=== PATIENT | male | born 1965 | race Caucasian/White ===

== ENCOUNTER 2021-10-03 08:49 | Emergency (ER) | payer BC, SELFPAY ==
[2021-10-03] MEDS ORDERED: Ondansetron PF 4 MG/2 ML Vial ONE ×2 (09:35→11:47)
[2021-10-03] MEDS ORDERED: Morphine 4 MG/ML VIAL ONE ×2 (09:35→11:47)
[2021-10-03] MEDS ORDERED: Sodium Chloride 0.9% 1,000 ML ONE ×2 (09:35→11:06)
[2021-10-03 09:49] LABS: #Basophils 0.1 thou/uL (0.0-0.2); #Eosinphils 0.1 thou/uL (0.0-0.7); #Lymphocytes 0.8 thou/uL (1.20-3.40); #Monocytes 0.5 thou/uL (0.11-0.59); #Neutrophils 6.9 thou/uL (1.40-6.50); %Basophils 0.8 % (0.0-1.0); %Eosinophils 0.7 % (0.0-10.0); %Lymphocytes 9.6 % (21.0-51.0); %Monocytes 5.5 % (0.0-10.0); %Neutrophils 83.4 % (42.0-75.0); Hemoglobin 15.5 g/dL (14.0-18.0); Mean Corpuscular Hemoglobin 27.5 pg (27.0-31.0); Mean Corpuscular Volume 91.6 fL (78.0-98.0); Mean Platelet Volume 11.1 fL (7.4-10.4); Platelet Count 238 thou/uL (130-400); RBC Distribution Width 15.2 % (11.5-14.5); Red Blood Cell (RBC) Count 5.65 mill/uL (4.70-6.10); White Blood Cell (WBC) Count 8.2 thou/uL (4.8-10.8)
[2021-10-03 10:04] LABS: ALT (SGPT) 147 U/L (8-55); AST (SGOT) 77 U/L (5-34); Alkaline Phosphatase 613 U/L (40-110); Anion Gap 20 mmol/L (10-20); BUN (Urea Nitrogen) 12 mg/dL (8.4-25.7); Bilirubin, Direct 7.6 mg/dL (0.1-0.3); Bilirubin, Total 11.2 mg/dL (0.2-1.2); Calc. Creatinine Clearance 0 mL/min (70-130); Calcium 9.4 mg/dL (7.8-10.44); Carbon Dioxide 21 mmol/L (22-29); Chloride 99 mmol/L (98-107); Estimated GFR 70; Glucose 120 mg/dL (70-105); Lipase 17 U/L (8-78); Potassium 4.4 mmol/L (3.5-5.1); Sodium 136 mmol/L (136-145)
[2021-10-03 10:43] LABS: Bilirubin Large (Negative); Blood, Urine Negative (Negative); Clarity Clear (Clear); Glucose, Urine (Dipstick) 100 mg/dL (Negative); Ketone, Urine > or equal to 80 mg/dL (Negative); Leukocyte Negative (Negative); Nitrite Negative (Negative); Protein, Urine (Dipstick) 100 mg/dL (Neg-Trace); Specific Gravity, Urine 1.015 (1.005-1.030); pH, Urine 5.5 (5.0-9.0)
[2021-10-03 10:52] LABS: WBC/HPF 0-3 HPF (0-3)
[2021-10-03 10:53] LABS: Calcium Oxalate Crystals 1+ HPF (None Seen)
== END 2021-10-03 11:55 | disposition home or self-care (01) ==
LOC: NAV ERS 08:49
DX: K86.89 Other specified diseases of pancreas (principal); K83.1 Obstruction of bile duct; G95.9 Disease of spinal cord, unspecified; Z79.899 Other long term (current) drug therapy
CPT/HCPCS: 74177; 80053; 81003; 81015; 82248; 83605; 83690; 85025; 93005; 96361; 96374; 96375; 96376; J2270; J2405; J7050